=== PATIENT | female | born 1990 | race Two or more races ===

== ENCOUNTER 2020-09-24 12:40 | Inpatient (IN) | payer MEDICAID ==
[~2020-09-24] VITALS: Ht 152.4 cm; Wt 61.2 kg
--- NOTE | 2020-09-24 13:05 | Emergency Room Report ---
History of Present Illness General Chief Complaint: Abdominal Pain Source: Patient Present Illness HPI Patient is a 30-year-old female past medical history of gallstones who presents to the ER complaining of right upper quadrant abdominal pain for the past 2 days. She complains of nausea and nonbilious nonbloody vomitus. She denies any fever or chills. She denies any chest pain or shortness of breath. She denies any dysuria or hematuria. She states that she took a special tea for pain but has not taken any actual pain medication. 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 COVID-19 Screening: Negative COVID-19 COVID-19 Testing Source: unk Patient History Last Menstrual Period: 1 month Now: No Reviewed Nursing Documentation: PMH: Agreed; PSxH: Agreed Nursing Documentation-PMH Past Medical History: No Stated History Review of Systems All Other Systems: negative except mentioned in HPI Physical Exam Vital Signs Date Time Temp Pulse Resp B/P (MAP) Pulse Ox O2 Delivery O2 Flow Rate FiO2 09/24/20 12:45 98.1 57 18 91/41 (58) 100 Room Air Sp02 EP Interpretation: reviewed, normal General Appearance: alert, GCS 15, non-toxic, moderate distress Head: normocephalic, atraumatic Eyes: bilateral eye normal inspection, bilateral eye PERRL ENT: hearing grossly normal, normal pharynx, no angioedema, normal voice Neck: full range of motion, supple/symm/no masses Respiratory: chest non-tender, lungs clear, normal breath sounds, speaking full sentences Cardiovascular #1: regular rate, rhythm, no edema Gastrointestinal: other - RUQ ttp Rectal: deferred Genitourinary: no CVA tenderness Musculoskeletal: normal range of motion 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, oriented x3 Psychiatric: no suicidal/homicidal ideation Skin: no rash Lymphatic: no adenopathy Medical Decision Making Diagnostic Impression: Primary Impression: Pancreatitis Additional Impression: Hypokalemia Laboratory Tests Test 09/24/20 13:00 09/24/20 13:09 Urine Color Yellow Urine Appearance Clear Urine pH 8 (4.5-8.0) Urine Specific [place] 1.010 (1.005-1.035) Urine Protein Negative (NEGATIVE) Urine Glucose (UA) Negative (NEGATIVE) Urine Ketones Negative (NEGATIVE) Urine Blood 1+ (NEGATIVE) H Urine Nitrite Negative (NEGATIVE) Urine Bilirubin Negative (NEGATIVE) Urine Urobilinogen Normal MG/DL (0.0-1.0) Urine Leukocyte Esterase 1+ (NEGATIVE) H Urine RBC 0-2 /HPF (0 - 2) Urine WBC 0-2 /HPF (0 - 2) Urine Squamous Epithelial Cells Few /LPF (NONE/OCC) Urine Bacteria Occasional /HPF (NONE) Urine HCG, Qualitative Negative (NEGATIVE) Urine Opiates Screen Negative (NEGATIVE) Urine Barbiturates Screen Negative (NEGATIVE) Phencyclidine (PCP) Screen Negative (NEGATIVE) Urine Amphetamines Screen Negative (NEGATIVE) Urine Benzodiazepines Screen Negative (NEGATIVE) Urine Cocaine Screen Negative (NEGATIVE) Urine Marijuana (THC) Screen Negative (NEGATIVE) White Blood Count 10.3 K/UL (4.8-10.8) Red Blood Count 5.00 M/UL (4.20-5.40) Hemoglobin 14.3 G/DL (12.0-16.0) Hematocrit 44.1 % (37.0-47.0) Mean Corpuscular Volume 88 FL (80-99) Mean Corpuscular Hemoglobin 28.5 PG (27.0-31.0) Mean Corpuscular Hemoglobin Concent 32.3 G/DL (32.0-36.0) Red Cell Distribution Width 13.7 % (11.6-14.8) Platelet Count 371 K/UL (150-450) Mean Platelet Volume 6.7 FL (6.5-10.1) Neutrophils (%) (Auto) 66.8 % (45.0-75.0) Lymphocytes (%) (Auto) 24.7 % (20.0-45.0) Monocytes (%) (Auto) 5.9 % (1.0-10.0) Eosinophils (%) (Auto) 1.8 % (0.0-3.0) Basophils (%) (Auto) 0.8 % (0.0-2.0) Prothrombin Time 11.1 SEC (9.30-11.50) Prothrombin Time INR 1.0 (0.9-1.1) Activated Partial Thromboplast Time 28 SEC (23-33) Sodium Level 137 MMOL/L (136-145) Potassium Level 3.2 MMOL/L (3.5-5.1) L Chloride Level 103 MMOL/L (98-107) Carbon Dioxide Level 27 MMOL/L (21-32) Anion Gap 7 mmol/L (5-15) Blood Urea Nitrogen 12 mg/dL (7-18) Creatinine 0.8 MG/DL (0.55-1.30) Estimated Glomerular Filtration Rate > 60 mL/min (>60) Glucose Level 109 MG/DL (74-106) H Calcium Level 8.6 MG/DL (8.5-10.1) Magnesium Level 2.2 MG/DL (1.8-2.4) Total Bilirubin 1.5 MG/DL (0.2-1.0) H Direct Bilirubin 0.8 MG/DL (0.0-0.3) H Aspartate Amino Transferase (AST) 270 U/L (15-37) H Alanine Aminotransferase (ALT) 328 U/L (12-78) H Alkaline Phosphatase 144 U/L (46-116) H Total Protein 8.6 G/DL (6.4-8.2) H Albumin 4.2 G/DL (3.4-5.0) Globulin 4.4 g/dL Albumin/Globulin Ratio 1.0 (1.0-2.7) Lipase > 2000 U/L (73-393) H Last Vital Signs Date Time Temp Pulse Resp B/P (MAP) Pulse Ox O2 Delivery O2 Flow Rate FiO2 09/24/20 12:45 98.1 57 18 91/41 (58) 100 Room Air Scripts No Active Prescriptions or Reported Meds Marissa Willson M.D. Sep 24, 2020 13:05
[2020-09-24] MEDS ORDERED: Ketorolac 30mg Inj IV ONE (13:15)
[2020-09-24 13:17] LABS: BASOPHILS % (AUTO) 0.8 % (0.0-2.0); EOSINOPHILS % (AUTO) 1.8 % (0.0-3.0); HEMATOCRIT 44.1 % (37.0-47.0); HEMOGLOBIN 14.3 G/DL (12.0-16.0); LYMPHOCYTES % (AUTO) 24.7 % (20.0-45.0); MEAN CORPUSCULAR VOLUME 88 FL (80-99); MONOCYTES % (AUTO) 5.9 % (1.0-10.0); NEUTROPHILS % (AUTO) 66.8 % (45.0-75.0); PLATELET COUNT 371 K/UL (150-450); RED CELL DISTRIBUTION WIDTH 13.7 % (11.6-14.8); WHITE BLOOD COUNT 10.3 K/UL (4.8-10.8)
[2020-09-24 13:18] LABS: APPEARANCE,URINE CLEAR; BILIRUBIN, URINE NEGATIVE (NEGATIVE); GLUCOSE, URINE (UA) NEGATIVE (NEGATIVE); KETONES,URINE NEGATIVE (NEGATIVE); LEUKOCYTE ESTERASE ,URINE 1+ (NEGATIVE); NITRITE,URINE NEGATIVE (NEGATIVE); PH,URINE 8 (4.5-8.0); PROTEIN,URINE NEGATIVE (NEGATIVE); UROBILINOGEN,URINE NORMAL MG/DL (0.0-1.0)
--- NOTE | 2020-09-24 13:29 | NUR ---
pt arrives to ER with complaints of abdominal painx few days.
[2020-09-24 13:33] LABS: COLOR,URINE YELLOW
[2020-09-24 13:42] LABS: ALANINE AMINOTRANSFERASE 328 U/L (12-78); ALBUMIN 4.2 G/DL (3.4-5.0); ALKALINE PHOSPHATASE 144 U/L (46-116); ANION GAP 7 mmol/L (5-15); ASPARTATE AMINO TRANSFERASE 270 U/L (15-37); BILIRUBIN,TOTAL 1.5 MG/DL (0.2-1.0); BLOOD UREA NITROGEN 12 mg/dL (7-18); CALCIUM 8.6 MG/DL (8.5-10.1); CARBON DIOXIDE 27 MMOL/L (21-32); CHLORIDE 103 MMOL/L (98-107); CREATININE 0.8 MG/DL (0.55-1.30); POTASSIUM 3.2 MMOL/L (3.5-5.1); SODIUM 137 MMOL/L (136-145)
[2020-09-24 13:52] LABS: BILIRUBIN,DIRECT 0.8 MG/DL (0.0-0.3)
[2020-09-24 14:27] VITALS: BP 91/41
[2020-09-24] MEDS ORDERED: Morphine Sulfate 4mg/ml Inj (IV USE ONLY) IVP PRN (14:30)
[2020-09-24] MEDS ORDERED: Morphine Sulfate 2mg/ml Inj(IV/IM USE ONLY) IVP PRN (14:30)
[2020-09-24] MEDS ORDERED: LORazepam 1mg tab ORAL PRN (14:30)
[2020-09-24] MEDS ORDERED: Mylanta II UD 30ml ORAL PRN (14:30)
--- NOTE | 2020-09-24 14:30 | Consultation ---
History of Present Illness General Date patient seen: Sep 24, 2020 Reason for Hospitalization: Abdominal Pain Present Illness HPI This is a very pleasant 30-year-old female otherwise healthy with history of known symptomatic cholelithiasis as expressed by patient prior episodes of acute cholecystitis who presented to [facility] complaining of 2 days abdominal pain right upper quadrant radiation to the back identified to have elevated LFTs and lipase likely acute gallstone pancreatitis. Surgery called to evaluate assist with care patient seen, patient evaluate, chart reviewed states 6 out of 10 pain cramping. States had nausea and emesis last night currently only mild nausea. Allergies: Coded Allergies: No Known Allergies (Unverified , 09/24/20) COVID-19 Screening Contact w/high risk pt: No Experienced COVID-19 symptoms?: No Medication History No Active Prescriptions or Reported Meds Patient History History Provided By: Patient, Medical Record, PMD Healthcare decision maker Resuscitation status Advanced Directive on File Past Medical/Surgical History Past Medical/Surgical History: (1) Hypokalemia (2) Pancreatitis Review of Systems Review of Symptoms General ROS: no weight loss or fever Psychological ROS: no depression or mood changes, no memory loss Ophthalmic ROS: no visual changes or eye irritation ENT ROS: no nasal congestion, hearing loss, dizziness Allergy and Immunology ROS: no allergic symptoms or urticaria Hematological and Lymphatic ROS: no swollen glands, unusual bleeding or bruising Endocrine ROS: no polyuria, polydipsia, weight changes, temperature intolerance Respiratory ROS: no cough, shortness of breath, or wheezing Cardiovascular ROS: no chest pain or dyspnea on exertion Gastrointestinal ROS: + abdominal pain, bright red blood in stool. Musculoskeletal ROS: no myalgias or arthralgias Neurological ROS: no TIA or stroke symptoms Dermatological ROS: no new or changing skin lesions, rashes or pruritis Physical Exam Physical Exam General appearance: alert, cooperative, no distress, appears stated age Head: Normocephalic, without obvious abnormality, atraumatic Eyes: conjunctivae/corneas clear. PERRL, EOM's intact. Fundi benign Throat: Lips, mucosa, and tongue normal. Teeth and gums normal Neck: supple, symmetrical, trachea midline, no adenopathy, thyroid: not enlarged, symmetric, no tenderness/mass/nodules, no carotid bruit and no JVD Lungs: clear to auscultation bilaterally Heart: regular rate and rhythm, S1, S2 normal, no murmur, click, rub or gallop Abdomen: soft, non-tender. Bowel sounds normal. No masses, no organomegaly Extremities: extremities normal, atraumatic, no cyanosis or edema Pulses: 2+ and symmetric Skin: Skin color, texture, turgor normal. No rashes or lesions Neurologic: Grossly normal Last 24 Hour Vital Signs Date Time Temp Pulse Resp B/P (MAP) Pulse Ox O2 Delivery O2 Flow Rate FiO2 09/24/20 13:01 57 18 Room Air 09/24/20 12:45 98.1 57 18 91/41 (58) 100 Room Air Laboratory Tests Test 09/24/20 13:00 09/24/20 13:09 Urine Color Yellow Urine Appearance Clear Urine pH 8 (4.5-8.0) Urine Specific [place] 1.010 (1.005-1.035) Urine Protein Negative (NEGATIVE) Urine Glucose (UA) Negative (NEGATIVE) Urine Ketones Negative (NEGATIVE) Urine Blood 1+ (NEGATIVE) H Urine Nitrite Negative (NEGATIVE) Urine Bilirubin Negative (NEGATIVE) Urine Urobilinogen Normal MG/DL (0.0-1.0) Urine Leukocyte Esterase 1+ (NEGATIVE) H Urine RBC 0-2 /HPF (0 - 2) Urine WBC 0-2 /HPF (0 - 2) Urine Squamous Epithelial Cells Few /LPF (NONE/OCC) Urine Bacteria Occasional /HPF (NONE) Urine HCG, Qualitative Negative (NEGATIVE) Urine Opiates Screen Negative (NEGATIVE) Urine Barbiturates Screen Negative (NEGATIVE) Phencyclidine (PCP) Screen Negative (NEGATIVE) Urine Amphetamines Screen Negative (NEGATIVE) Urine Benzodiazepines Screen Negative (NEGATIVE) Urine Cocaine Screen Negative (NEGATIVE) Urine Marijuana (THC) Screen Negative (NEGATIVE) White Blood Count 10.3 K/UL (4.8-10.8) Red Blood Count 5.00 M/UL (4.20-5.40) Hemoglobin 14.3 G/DL (12.0-16.0) Hematocrit 44.1 % (37.0-47.0) Mean Corpuscular Volume 88 FL (80-99) Mean Corpuscular Hemoglobin 28.5 PG (27.0-31.0) Mean Corpuscular Hemoglobin Concent 32.3 G/DL (32.0-36.0) Red Cell Distribution Width 13.7 % (11.6-14.8) Platelet Count 371 K/UL (150-450) Mean Platelet Volume 6.7 FL (6.5-10.1) Neutrophils (%) (Auto) 66.8 % (45.0-75.0) Lymphocytes (%) (Auto) 24.7 % (20.0-45.0) Monocytes (%) (Auto) 5.9 % (1.0-10.0) Eosinophils (%) (Auto) 1.8 % (0.0-3.0) Basophils (%) (Auto) 0.8 % (0.0-2.0) Prothrombin Time 11.1 SEC (9.30-11.50) Prothromb Time International Ratio 1.0 (0.9-1.1) Activated Partial Thromboplast Time 28 SEC (23-33) Sodium Level 137 MMOL/L (136-145) Potassium Level 3.2 MMOL/L (3.5-5.1) L Chloride Level 103 MMOL/L (98-107) Carbon Dioxide Level 27 MMOL/L (21-32) Anion Gap 7 mmol/L (5-15) Blood Urea Nitrogen 12 mg/dL (7-18) Creatinine 0.8 MG/DL (0.55-1.30) Estimat Glomerular Filtration Rate > 60 mL/min (>60) Glucose Level 109 MG/DL (74-106) H Calcium Level 8.6 MG/DL (8.5-10.1) Magnesium Level 2.2 MG/DL (1.8-2.4) Total Bilirubin 1.5 MG/DL (0.2-1.0) H Direct Bilirubin 0.8 MG/DL (0.0-0.3) H Aspartate Amino Transf (AST/SGOT) 270 U/L (15-37) H Alanine Aminotransferase (ALT/SGPT) 328 U/L (12-78) H Alkaline Phosphatase 144 U/L (46-116) H Total Protein 8.6 G/DL (6.4-8.2) H Albumin 4.2 G/DL (3.4-5.0) Globulin 4.4 g/dL Albumin/Globulin Ratio 1.0 (1.0-2.7) Lipase > 2000 U/L (73-393) H Height (Feet): 5 Weight (Pounds): 135 Medications Current Medications Medications (Trade) Dose Ordered Sig/Pablo Route PRN Reason Start Time Stop Time Status Last Admin Dose Admin Potassium Chloride 100 ml @ 100 mls/hr Q1H IVPB 09/24/20 14:00 09/24/20 14:59 09/24/20 14:15 Sodium Chloride 1,000 ml @ 999 mls/hr Q1H1M ONCE IV 09/24/20 14:00 09/24/20 15:00 09/24/20 14:15 Assessment/Plan Problem List: (1) Acute gallstone pancreatitis Assessment & Plan: 30-year-old female acute gallstone pancreatitis. History of cholelithiasis symptomatic possible acute cholecystitis now presents with elevated lipase T bili LFTs. Positive Lopez's pain persistent. Currently no nausea vomiting prior emesis nonbloody. Ultrasound ordered pending final results wet read by myself identified choleli thiasis some gallbladder edema. Recommend cool down admit for rest cool down fluids pain control. Once improved depending on course of clinical duration can consider cholecystectomy either an inpatient or electively outpatient in a few weeks once pancreatitis resolved if acute severe N.p.o. iv fluids trend labs will follow with exam and recs thank you ICD Codes: K85.10 - Biliary acute pancreatitis without necrosis or infection SNOMED: [id number] Remington Woods Sep 24, 2020 14:30
[2020-09-24 16:29] VITALS: BP 102/42
--- NOTE | 2020-09-24 16:34 | NUR ---
called report to floor at this time, vital signs updated, pt in NAD. pt awaiting transportation upstairs.
--- NOTE | 2020-09-24 17:21 | NUR ---
NURSE NOTES: Patient signed out AMA. Stated she had a nine month old baby at home and was not expecting to be admitted. Risks versus benefits explained, patient stated she would come back to ER after feeding and providing care for her daughter. 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
--- NOTE | 2020-09-24 17:47 | Diagnostic Imaging Report ---
Indication: Cough Technique: XRAY Chest 1v Comparison: None Findings: Heart size and mediastinal contours are within normal limits for AP technique. There is no focal airspace consolidation, pneumothorax or pleural effusion. Osseous structures demonstrate no acute abnormality. Impression: No radiographic evidence of acute cardiopulmonary disease.
--- NOTE | 2020-09-24 17:53 | Diagnostic Imaging Report ---
Indication: Abdominal pain Technique: Multiplanar scale and duplex Doppler evaluation of the abdomen Comparison: None Findings: Imaged portions of the abdominal aorta are normal in caliber. Imaged portions of the IVC normal in caliber. Hepatic contour is smooth. No focal hepatic mass lesion appreciated sonographically. Echogenicity is within normal limits and homogeneous. Imaged hepatic veins are patent. The main portal vein is patent. There is cholelithiasis. No gallbladder wall thickening or pericholecystic fluid. Sonographic Lopez's sign reported as negative. No intrahepatic or extra hepatic biliary ductal dilatation. Common bile duct measures 3 mm diameter. Kidneys demonstrate normal echogenicity. There is no hydronephrosis or sonographically appreciable renal stone. Spleen is normal in size. No ascites is demonstrated. IMPRESSION: Cholelithiasis. No discrete sonographic evidence to suggest acute cholecystitis. Sonographic Lopez's sign reported as negative.
--- NOTE | 2020-09-25 11:30 | Discharge Summary ---
Discharge Summary Discharge Summary _ Date of admission: 09/24/2020 Patient left AGAINST MEDICAL ADVICE on 09/24/2020 History of Present Illness and Brief Hospital Course Ms. Daron Sheppard is a 30-year-old female with past medical history of cholelithiasis who presented to ED for evaluation of right upper quadrant abdominal pain x2 days. Initial laboratory studies were remarkable for elevated lipase, total bilirubin, and elevated LFTs. She also had positive Lopez sign. The abdominal ultrasound was notable for cholelithiasis without discrete evidence to suggest acute cholecystitis. Sonographic Lopez sign was negative. Chest x-ray was negative for acute cardiopulmonary disease. Patient was to be admitted to the hospital for further management. Patient stated that she had a 9-month-old baby at home and was not expecting to be admitted. Risks versus benefits were explained. Patient signed out AMA before being evaluated by her attending physician. Patient stated that she would come back to ER after feeding and providing care for her daughter. Consultants: Surgery Dr. Woods Final diagnoses Acute gallstone pancreatitis Cholelithiasis I have been assigned to dictate discharge summary for this account. I was not involved in the patient's management Sumeet Montano Sep 25, 2020 11:29
== END 2020-09-24 17:21 | disposition left against medical advice (07) | DRG 282 ==
LOC: EMR 13:10 → 4E 14:17 → EDBEDREQ 15:07
DX: K85.10 Biliary acute pancreatitis without necrosis or infection (principal); K80.20 Calculus of gallbladder without cholecystitis without obstruction
CPT/HCPCS: 36415; 71045; 76700; 80053; 80307; 81003; 81025; 82248; 83690; 83735; 85025; 85610; 85730; 93005; 96361; 96374; 96375; 99285; J2405